=== PATIENT | male | born 1990 | race Caucasian/White ===

== ENCOUNTER 2020-10-21 20:13 | Emergency (ER) | payer OTHER ==
[2020-10-21] MEDS ORDERED: HYDROcod/ACETAM 5/325 MG TABLET PO STA (21:17)
[2020-10-21] MEDS ORDERED: CYCLOBENZAPRINE 10 MG TABLET PO STA (21:18)
[2020-10-21] MEDS ORDERED: KETOROLAC 30 MG/ML VIAL IM STA (21:18)
--- NOTE | 2020-10-21 21:21 | ED Physician Documentation ---
PD HPI LOWER EXT INJURY - Stated complaint Stated Complaint: R LEG INJURY - Chief complaint Chief Complaint: Ext Problem - History obtained from History obtained from: Patient - Additional information Additional information: Patient comes emergency department for chief complaint of right posterior thigh pain after running during a soccer game. He states he felt a sudden pain that shot from the middle of his posterior thigh both proximally and distally. He states that it hurt to run after that and so he just walked for the rest of the game. Patient states injury happened around 1800 tonight. No prior injury to the area. No pain in the joints, and patient states he does not feel like the pain is coming from the bone. No other injuries or complaints at this time. No numbness or tingling in his foot. Review of Systems Ten Systems: 10 systems reviewed and negative Constitutional: reports: Reviewed and negative Eyes: reports: Reviewed and negative Ears: reports: Reviewed and negative Nose: reports: Reviewed and negative Throat: reports: Reviewed and negative Cardiac: reports: Reviewed and negative Respiratory: reports: Reviewed and negative GI: reports: Reviewed and negative : reports: Reviewed and negative Skin: reports: Reviewed and negative Musculoskeletal: reports: Extremity pain Neurologic: reports: Reviewed and negative Psychiatric: reports: Reviewed and negative Endocrine: reports: Reviewed and negative Immunocompromised: reports: Reviewed and negative PD PAST MEDICAL HISTORY - Past Medical History Past Medical History: Yes GI: GERD - Past Surgical History Past Surgical History: Yes General: Appendectomy - Present Medications Home Medications: Ambulatory Orders Medication Instructions Recorded Confirmed Cyclobenzaprine [Flexeril] 10 mg PO TID PRN #20 tablet 10/21/20 Gerd Medication 10/21/20 HYDROcod/ACETAM 5/325 [Pollard 5/325] 1 - 2 tablet PO Q6H PRN #14 tablet 10/21/20 - Allergies Allergies/Adverse Reactions: Allergies Allergy/AdvReac Type Severity Reaction Status Date / Time No Known Drug Allergies Allergy Verified 10/21/20 20:16 - Social History Does the pt smoke?: No Smoking Status: Never smoker Does the pt drink ETOH?: No Does the pt have substance abuse?: No - Immunizations Immunizations are current?: Yes PD ED PE NORMAL - Vitals Vital signs reviewed: Yes - General General: Alert and oriented X 3, No acute distress, Well developed/nourished - HEENT HEENT: Atraumatic, PERRL, EOMI, Moist mucous membranes - Neck Neck: Supple, no meningeal sign - Cardiac Cardiac: Strong equal pulses - Respiratory Respiratory: No respiratory distress - Derm Derm: Normal color, Warm and dry, No rash - Extremities Extremities: No deformity, No edema, Other (Tenderness palpation without mass in the mid posterior upper leg on the right, consistent with hamstrings area. Full range of motion knee. No hip tenderness. No tenderness proximal to the mid hamstrings. No calf tenderness. No edema.) - Neuro Neuro: Alert and oriented X 3 - Psych Psych: Normal mood, Normal affect Results - Vitals Vitals: Vital Signs - 24 hr 10/21/20 20:16 Temperature 36.6 C Heart Rate 79 Respiratory 16 Rate Blood Pressure 142/84 H O2 Saturation 96 Oxygen O2 Source Room air PD MEDICAL DECISION MAKING - ED course Complexity details: considered differential, d/w patient ED course: I discussed with the patient that his injury sounds most consistent with a hamstring strain. We have discussed the course of recovery and the indications for follow-up for further evaluation. We have also discussed symptomatic management at home. No imaging indicated emergently at this time. Patient is treated symptomatically in the emergency department Toradol, Flexeril, and Vicodin. Departure - Departure Clinical Impression: Hamstring muscle strain Qualifiers: Encounter type: initial encounter Laterality: right Qualified Code(s): S76.311A - Strain of muscle, fascia and tendon of the posterior muscle group at thigh level, right thigh, initial encounter Condition: Stable Instructions: ED Strain Muscle Ext Prescriptions: Cyclobenzaprine [Flexeril] 10 mg PO TID PRN #20 tablet PRN Reason: Spasms HYDROcod/ACETAM 5/325 [Pollard 5/325] 1 - 2 tablet PO Q6H PRN #14 tablet PRN Reason: Pain Comments: Your symptoms and the story of your injury Are most consistent with a hamstring strain. You will most likely notice bruising tracking down your leg in the next couple of days. Generally, these sorts of strains take several weeks to heal and the treatment is primarily resting the leg from any strenuous activity. You may use heat and ice to help with the discomfort and you should try to do some range of motion of your leg regularly so that the muscle does not spasm up. Please take the medications prescribed as needed. You may follow-up with your primary care physician if you are not feeling any better after the next couple of weeks to discuss whether MRI is indicated.
[2020-10-21] MEDS ORDERED: CYCLOBENZAPRINE 10 MG Prepack 2 PO PRN (21:28)
[2020-10-21 22:03] VITALS: BP 137/75
== END 2020-10-21 22:11 | disposition home or self-care (01) ==
LOC: ED 20:13
DX: S76.311A Strain of muscle, fascia and tendon of the posterior muscle group at thigh level, right thigh, initial encounter (principal); X58.XXXA Exposure to other specified factors, initial encounter; Y93.66 Activity, soccer
CPT/HCPCS: 96372; 99283; 99284